=== PATIENT | female | born 1955 | race American Indian/Alaskan Native ===

== ENCOUNTER 2018-11-23 10:28 | Inpatient (IN) | payer BC, OTHER ==
[~2018-11-23] VITALS: Ht 162.6 cm; Wt 100.7 kg
--- NOTE | ~2018-11-23 | DS ---
[facility] [address] [place], [place] [address] Draft ADMISSION DATE: 12/01/2018 DISCHARGE DATE: 12/03/2018 FINAL DIAGNOSIS AT THE TIME OF DISCHARGE: End-stage osteoarthritis, right knee. PROCEDURE PERFORMED: Right total knee arthroplasty using Attune PS knee. HISTORY OF PRESENT ILLNESS: The patient is a 63-year-old female with a history of progressive osteoarthritis in both knees, no longer getting significant relief with conservative management. For the last [id number]-half, , but has finally decided she wants to proceed with a total knee arthroplasty on the right. HOSPITAL COURSE: The patient was taken to Day Surgery on May 03, 2019. After being evaluated in Day Surgery, she was taken to the operating room where she underwent an uneventful right total knee arthroplasty under spinal anesthesia. Postoperatively, she has done extremely well. She has met all of her therapy parameters and her pain is well controlled with oxycodone 5 mg being taken every 4 to 6 hours as needed for pain. We are going to discharge her home on Oxy IR 5 alternating with tramadol 50 to 100 mg every 6 hours. We will have her continue on her Xarelto for DVT prophylaxis. We will arrange for her to have outpatient physical therapy on the knee doing the total knee program. We will have her follow up with us in about six weeks. MD CALEB Hernandez/KELVIN /[id number] Copies: PATIENT NAME: RANDY JOHNSON DISCHARGE SUMMARY DATE OF : 53 REPORT #: [id number] PHYSICIAN: EMI MEDINA MD PCP: [facility] REPORT IS CONFIDENTIAL AND NOT TO BE RELEASED WITHOUT AUTHORIZATION [address] [address] Draft ~ PATIENT NAME: RANDY JOHNSON DISCHARGE SUMMARY DATE OF : 53 REPORT #: [id number] PHYSICIAN: EMI MEDINA MD PCP: [facility] REPORT IS CONFIDENTIAL AND NOT TO BE RELEASED WITHOUT AUTHORIZATION
[~2018-11-23 10:28] MED LIST: AMLODIPINE BESY10 MG PO; ASPIRIN EC81 MG PO; ATENOLOL50 MG PO; BP MED; CHOLESTEROL MED; CORAL CALCIUM1 EAC2 PO; DICLOFENAC SODI75 MG PO; DIPHENHYDRAMINE25 MG PO; FISH OIL 1,0001 EAC2 NG; HYDROCHLOROTH12.5 MG PO; MOBIC15 MG PO; MOTRIN600 MG PO; MULTI VITAMIN1 EACH PO; NORCO 5-325 TA1 EACH PO; PERCODAN TABLE1 EACH PO; SIMVASTATIN10 MG PO
[2018-11-24] MEDS ORDERED: LIPITOR10 MG PO (14:37)
--- NOTE | 2018-11-25 09:53 | NUR ---
PATIENT HERE TODAY FOR PREADMISSION APPOINTMENT. SHE IS SCHEDULED TO HAVE A RIGHT TOTAL KNEE ARTHROPLASTY ON 12/01/18. SHE ATTENDED AN APPOINTMENT WITH PHYSICAL THERAPY YESTERDAY AND WILL BE HAVING PHYSICAL THERAPY DONE WITH [facility]. FAMILY WILL PICK HER UP WHEN SHE IS DISCHARGED AND TRANSPORT HER TO APPOINTMENTS NEEDED. SHE REPORTS A REQUEST WAS SENT IN FOR A WALKER AND SHOWER BENCH. SHE HAS NO STEPS INTO THE HOME OR INSIDE THE HOME. THERE IS A TUB/SHOWER SHE WILL BE USING. SHE TALKS OF TAKING CARE OF HER GRANDCHILD WHO IS CURRENTLY SICK. THIS INFORMATION WILL BE SENT TO DR GATICA OFFICE AND CASE MANAGEMENT FOR FURTHER FOLLOW UP.
--- NOTE | 2018-12-01 11:27 | NUR ---
CHECKED ON PT AFTER 2MG OF VERSED, SHE IS RESTING COMFORTABLY. O2 SAT MONITOR IS ON, SHE IS MAINTINTAIN AT 97% ROOM AIR.
--- NOTE | 2018-12-01 12:42 | NUR ---
PATIENT ASSISTED TO THE BATHROOM W/FISHER TROT LINE AND MYSELF. PATIENT AMBULATES WITH A LIMP, BUT DOES SO WELL. PATIENT BACK IN BED. SIDE RAILS ARE IN PLACE. FAMILY REMAINS @ BEDSIDE.
--- NOTE | 2018-12-01 15:08 | NUR ---
12/01/18 1508 Sheets,Dyan 1500 PT ARRIVED TO PACU ON 10L VIA MASK WITH ORAL AIRWYA IN PLACE. RESP EVEN AND UNLABORED. 1503 PT WOKE TO PAINFUL STIMULI THEN BACK TO SLEEP, ORAL AIRWAY REMAINS IN PLACE. 1507 O2 DECREASED TO 6L VIA MASK.
--- NOTE | 2018-12-01 17:16 | NUR ---
PT ARRIVED TO FLOOR VIA STRETCHER. PT IS ON 2L NC, IS SOMEWHAT DROWSY BUT AWAKES TO VERBIL STIMULI. PT DENIES NAUSEA/VOMITTING OR PAIN. CPOX PLACED ON PT. DRESSING T ORIGHT KNEE WITH ELINOR WRAP IN PLACE IS C/D/I. ICE APPLIED TO RIGHT KNEE. LR AT [address] PT ORIENTED TO ROOM. FAMILY AT BEDSIDE. CALL LIGHT IN REACH. ICE WATER PROVIDED.
--- NOTE | 2018-12-01 19:20 | NUR ---
LIPITOR ADMINISTERED. PT REPORTING NAUSEA AFTER SIP OF WATER. REGLAN ADMINISTERED. NAUSEA IMPROVED. ABX INFUSING. HOB ELELVATED. EMISIS BAG PROVIDED. CALL LIGHT IN REACH
--- NOTE | 2018-12-01 19:33 | NUR ---
IN ROOM FOR REPORT, PT IS RESTING WITH EYES CLOSED, RR IS EVEN AND NONLABORED OF 2 LNC AND CPOX AT 93%. CALL LIGHT IS CLOSE.
--- NOTE | 2018-12-01 20:24 | NUR ---
IN ROOM TO ASSESS PT AND ADMINISTER MEDICATIONS. PT DENIES PAIN BUT STATES SHE HAS SOME NAUSEA. SHE IS DROWSY AND FALLS BACK ASLEEP EASILY. RT KNEE DRESSING HAS QUATER SIZE SANGUINOUS DRAINAGE NOTED. ASSISTED PT TO BSC 2PA WITH FWW. PT REPORTS SHE ALSO URINATED ABOUT 5PM TONIGHT. SHE DENIES NEEDS AT THIS TIME. SCDS, HEEL PROTECTORS, CPOX AND ICE ARE IN PLACE. PT DENIES FURTHER NEEDS AND CALL LIGHT IS WITHIN REACH.
--- NOTE | 2018-12-01 23:07 | NUR ---
NOTIFIED THAT PT HAD EMESIS. UPON ENTERING THE ROOM PT REPORTS A VERY SMALL AMOUNT POSSIBLY JUST SPIT. ADMINISTERED ZOFRAN AND PT FELT SHE WAS ABLE TO TAKE HER GABAPENTIN WELL. SHE DENIES NEEDS AT THIS TIME. CALL LIGHT IS WITHIN REACH.
--- NOTE | 2018-12-01 23:59 | NUR ---
PT WAS HAVING DRY HEAVES. ADMINISTERED PHENERGAN 12.5MG IN 20MLS ON PUMP OVER 10 MINUTES. BROUGHT PT WARM BLANKETS. PT DENIES FURTHER NEEDS. CALL LIGHT IS WITHIN REACH.
--- NOTE | 2018-12-02 01:01 | NUR ---
PT IS RESTING WITH EYES CLOSED, RR IS EVEN AND NONLABORED ON CPOX AT 93%. CALL LIGHT IS WITHIN REACH.
--- NOTE | 2018-12-02 02:30 | NUR ---
ASSITED PT TO THE RESTROOM 2PA WITH FWW. SHE WAS A LITTLE UNSTEADY ON HER FEET BUT DID WELL WITH GAIT BELT. ADMINISTERED MEDICATIONS AND SHE DENIES PAIN AT THIS TIME. CALL LIGHT IS WITHIN REACH. DRESSING STILL HAS SMALL AMOUNT OF DRAINAGE ON MEPILEX. CALL LIGHT IS CLOSE AND PT DENIES NEEDS.
--- NOTE | 2018-12-02 03:17 | NUR ---
CPOX WAS BEEPING PT DROPPED TO 84% O2 SAT. PLACED HER BACK ON 2 LNC TO GET HER BACK TO 91%. CALL LIGHT IS CLOSE.
--- NOTE | 2018-12-02 03:40 | NUR ---
PT IS RESTING WITH EYES CLOSED, RR IS EVEN AND NONLABORED ON CPOX. CALL LIGHT IS WITHIN REACH.
--- NOTE | 2018-12-02 05:15 | NUR ---
PT IS AWAKE IN BED, PT REQUESTED MORE CRACKERS. SHE DENIES FURTHER NEEDS AT THIS TIME. CALL LIGHT IS WITHIN REACH. SHE IS BACK ON RA AT 96% CPOX.
--- NOTE | 2018-12-02 05:47 | NUR ---
PT WAS PRETTY DROWSY AT THE START OF THE SHIFT. SHE HAD NAUSEA ON AND OFF REQUIRING ZOFRAN, REGLAN AND PHENERGAN BUT HAS NOT REQUIRED ANTINAUSEA MEDICATIONS SINCE ABOUT MIDNIGHT. SHE DENIES PAIN AND REPORTS SOME NUMBNESS AND TINGLING IN HER LEGS. SHE IS 2PA TO THE RESTROOM. SHE REQUIRED 2 LNC THROUGHT MOST OF THE NIGHT BUT WHILE AWAKE SHE IS ON RA. RT KNEE DRESSING IS INTACT AND THERE IS A SMALL AMOUNT OF SANGUINOUS DRAINAGE NOTED. SHE HAS FOOT PUMPS, ICE, HEEL PROTECTORS AND CPOX IN PLACE. PT IS TOLERATING CRACKERS AND LIQUIDS AT THIS TIME.
--- NOTE | 2018-12-02 06:10 | NUR ---
PT IS AWAKE IN BED, SHE DENIES NEEDS AT THIS TIME. CALL [facility] IS CLOSE.
--- NOTE | 2018-12-02 07:42 | NUR ---
REPORT RECEIVED FROM LA NENA DOMINGO RN. PT IN BED WITH HOB ELEVATED. CPOX IN PLACE, 91% ON RA AND HR 88. FOOT PUMPS IN PLACE, DRESSING TO RIGHT KNEE C/D/I. PT DENIES PAIN AT THIS TIME. ICE TO RIGHT KNEE. LR @ 125ML/HR INFUSING. CALL LIGHT IN REACH. DENEIOS FURTHER NEEDS, DENIES NAUSEA.
--- NOTE | 2018-12-02 08:47 | NUR ---
PT OOB 2PA TO CHAIR FOR BREAKFAST. DENEIS PAIN AT THIS TIME. ICE FOR RIGHT KNEE REFRESHED, DRESIING C/D/I. CALL LIGHT IN REACH.
--- NOTE | 2018-12-02 11:12 | NUR ---
PHYSICAL THERAPY IN TO WORK WITH PT.
--- NOTE | 2018-12-02 11:15 | OR ---
[facility] [address], [place] [address] Signed DATE OF OPERATION: 12/01/2018 SURGEON: Emi Medina MD PREOPERATIVE DIAGNOSIS: End-stage osteoarthritis of her right knee. POSTOPERATIVE DIAGNOSIS: End-stage osteoarthritis of her right knee. PROCEDURE: Right total knee arthroplasty. ANESTHESIA: Spinal with sedation. SPECIMENS AND COMPLICATIONS: There were no specimens or complications. TOURNIQUET TIME: about 80 minutes. IMPLANTS: An attune PS size 6 narrow femur, a size 5 tibial tray with a 7 PS poly insert and a 35 mm all-poly patella. WHAT WAS DONE: The patient was taken to the operating room. After anesthesia was induced and airway secured, the patient was positioned prepped and draped in a routine sterile fashion. The leg was exsanguinated with elevation and pneumatic tourniquet about the thigh was elevated to 300 mmHg pressure. A straight anterior approach was made to the knee. Skin and subcutaneous tissue were divided sharply. Hemostasis was achieved with electrocautery. An anteromedial arthrotomy was then performed. The patella was turned on edge and about 10 mm trimmed off the posterior aspect. We then made drill holes for 35 mm all-poly patella. We have put the trial patella in place and measured the thickness with a caliper and we had reconstructed the 22 mm height that have been present prior to resection. We then removed the trial and put the patella in the lateral recess and flexed the knee. We attached the Webjam navigation system to the distal femur and following the protocol we digitized the distal femur. We then accomplished distal femoral resection removing 10 mm of bone in neutral varus valgus and Electronically Signed By: EMI MEDINA MD 12/02/18 1115 PATIENT NAME: RANDY JOHNSON OPERATIVE REPORT DATE OF : 53 REPORT #: [id number] PHYSICIAN: EMI MEDINA MD PCP: [facility] REPORT IS CONFIDENTIAL AND NOT TO BE RELEASED WITHOUT AUTHORIZATION [facility] [address], [place] [address] Signed in about 3 degrees of flexion. Femoral wafers were then removed along with some peripheral osteophytes. We then transitioned the navigation system to the proximal tibia. Again, we resected about 4 mm off the medial side in neutral varus valgus, with about 3 degrees of posterior tilt per the attune surgical protocol. We then removed the tibial wafer remnants of the medial and lateral meniscus, ACL and PCL. We then put the femoral sizing jig on the distal femur and the femur sized to a size 6. We placed the alignment pins, put the 4-in-1 cutting block on the distal femur and then resected anteriorly posteriorly and to the chamfer cuts. We then cut out the notch. We then placed the size 6 femoral trial on the distal femur. Put a size 5 tibial tray with a 5 mm poly insert on the tibial. We then ranged the knee and checked the alignment, rotation and stability. We then removed the trials and prepared the tibia with a standard reamer and broach. The knee was copiously irrigated and meticulously dried. We then cemented the tibial tray, the femur and the patella in place. We placed a 5 mm poly trial on the tray and held the knee in full extension until cement had completely cured. Once the cement had completely cured, we removed the trial and recycled the knee. We actually found we could place a 7 mm poly and still achieve full extension with excellent varus and valgus stability. The trial was removed. The real poly was then snap-fit to the tray. The knee was copiously irrigated and meticulously dried. Routine wound closure was accomplished and a sterile dressing applied. The patient was awakened and taken to the recovery room and arrived in stable condition. Counts were correct and antibiotic protocols were followed. Emi Medina MD WFB/MODL /[id number] Copies: ~ Electronically Signed By: EMI MEDINA MD 12/02/18 1115 PATIENT NAME: RANDY JOHNSON OPERATIVE REPORT DATE OF : 53 REPORT #: [id number] PHYSICIAN: EMI MEDINA MD PCP: [facility] REPORT IS CONFIDENTIAL AND NOT TO BE RELEASED WITHOUT AUTHORIZATION
--- NOTE | 2018-12-02 13:10 | NUR ---
FAXED ORDER FOR A FRONT WHEELED WALKER TO [facility] INCLUDING CHART NOTES: FACE SHEET, H AND P, OP NOTE, PROG NOTE, PT EVAL AND ORDER. RECIEVED FAX CONFIMATION.
--- NOTE | 2018-12-02 16:12 | NUR ---
PT OUT IN HALLS WORKING [facility].
--- NOTE | 2018-12-02 17:28 | NUR ---
CHECKED WITH PT AND SHE HAS HER NEW WALKER IN HER ROOM WITH HER.
--- NOTE | 2018-12-02 17:53 | NUR ---
pATIENT HAS HAD A GOOD DAY HAS BEEN UP TO THE BATHROOM,WALKED IN ALDRICH WAY WITH THERPHY, PATIENT IS 1 PERSON ASSIST. PATIENT WASNT UP TO A SHOWER SAYS SHE WILL TAKE ONE TOMARROW, BED WAS CHANGED, PATIENT ALSO DID ALL HER ORAL CARE.
--- NOTE | 2018-12-02 19:23 | NUR ---
IN ROOM FOR REPORT. PT DENIES NEEDS AT THIS TIME. CALL LIGHT IS CLOSE.
--- NOTE | 2018-12-02 20:26 | NUR ---
IN ROOM TO ASSESS PT AND ADMINISTER MEDICATIONS. PT ONLY WANTS THE SCHEDULED PAIN MEDICINE AT THIS TIME. REMINDED HER TO CALL IF PAIN IS NOT WELL CONTROLLED. ASSISTED HER TO THE RESTROOM SBA WITH FWW. RT KNEE DRESSING HAS MODERATE AMOUNT OF BLEEDING NOTED. WILL REINFORCE DRESSING TONIGHT. PT DENIES NEEDS AT THIS TIME. CALL LIGHT IS CLOSE.
--- NOTE | 2018-12-02 21:24 | NUR ---
PATIENT VS DONE. PATIENT ASSISTED TO REPOSITION IN BED. JELLO PROVIDED PER REQUEST. PATIENT DENIES FURTHER NEEDS. ICE PACKS REMOVED PER REQUEST. CALL LIGHT IN REACH.
--- NOTE | 2018-12-02 23:30 | NUR ---
MEDICAL LOGISTICS SPECIALIST EVELYN TOOK PT TO THE RESTROOM AND HELPED HER BACK TO BED.
--- NOTE | 2018-12-03 00:38 | NUR ---
PT IS RESTING WITH EYES CLOSED, RESPIRATIONS ARE EVEN AND NONLABORED. CALL LIGHT IS WITHIN REACH.
--- NOTE | 2018-12-03 02:13 | NUR ---
ADMINISTERED SCHEDULED MEDICATIONS AND ASSISTED PT TO THE RESTROOM AND BACK TO BED. SHE DENIES FURTHER NEEDS. CALL LIGHT IS WITHIN REACH.
--- NOTE | 2018-12-03 04:35 | NUR ---
PT CALLED TO USE RESTROOM. SBA WITH FWW AND SHE IS BACK IN BED. SHE REQUESTED TO TAKE A BREAK FROM THE FOOT PUMPS SHE WORE THEM ALL NIGHT. SHE WANTS TO WAIT TO HAVE PAIN MEDICATION UNTIL CLOSER TO DAY SHIFT. NEW ICE IN BAGS. PT DENIES FURTHER NEEDS AT THIS TIME. CALL LIGHT IS CLOSE.
--- NOTE | 2018-12-03 05:03 | NUR ---
PT SLEPT ON AND OFF THROUGH THE NIGHT. SHE WAS RELUCTANT TO TAKE OXYCODONE BECAUSE OF NAUSEA AND SHE DOES NOT LIKE THE WAY SHE FEELS. SHE TOOK 1 OXYCODONE ALONG WITH ZOFRAN AND SOME CRACKERS WITHOUT ANY PROBLEMS. SHE IS SBA WITH FWW. RT KNEE BANDAGE SOAKED THROUGH TO ACEWRAP YESTERDAY, REINFORCED WITH ABD AND NEW ELINOR WRAP. SHE HAS ICE ON HER RT KNEE AND SCDS. FAMILY STAYED NIGHT IV IN RT FOREARM IS SL. SHE WAS ON ROOM AIR ALL NIGHT. SHE IS VOIDING QS.
--- NOTE | 2018-12-03 06:22 | NUR ---
IN ROOM TO ADMINISTER PRN PAIN MEDICATION AND ZOFRAN TO AVOID NAUSEA. PT DENIES FURTHER NEEDS AT THIS TIME. CALL LIGHT IS CLOSE.
--- NOTE | 2018-12-03 06:57 | NUR ---
PT CALLED SCREAMING. UPON ENTERING THE ROOM SHE SAID SHE TURNED HER KNEE JUST RIGHT WHILE TRYING TO MOVE IN BED AND IT POPED. PULLED ACEWRAP BACK AND DID NOT SEE ANYTHING OUT OF THE ORDINARY JUST BRUISING. TOLD PT TO TRY TO KEEP HER LEG STRAIGHT AND PLACED EXTRA ICE ON HER KNEE. SHE POINTED TO THE LATERAL SIDE OF HER KNEE AND SAID THAT IS WHERE THE POP AND PAIN IS AT. LEFT A MESSAGE FOR DR. MEDINA TO CALL BACK. WENT BACK TO THE PATIENT WHO WAS CALMING DOWN A LITTLE AND OFFERED TO GIVE A 2ND OXYCODONE AND SHE DECLINED. ADVISED PT TO LET US KNOW IF ANYTHING CHANGES.
--- NOTE | 2018-12-03 07:08 | NUR ---
SPOKE WITH DR MEDINA ORDERS RECEIVED FOR RT KNEE XRAY 2 VIEW, [facility].
--- NOTE | 2018-12-03 08:06 | NUR ---
REPORT RECEIVED. IMAGING IN TO DO KNEE X-RAY. PT REPORTING 9/10 PAIN IN RIGHT KNEE. PT IS TEARFUL. REASURED EASILY. 5MG OXYCODONE, SCHEDULE TORADOL AND TYLENOL ADMINISTERED. ICE APPLIED TO RIGHT KNEE. PILLOW TO LATERAL SIDE TO KEEP KNEE STRAIGHT. KNEE FUNTION ON BED LOCKED. BREAKFAST AT BEDSIDE. WILL CONT TO MONITOR.
--- NOTE | 2018-12-03 10:45 | NUR ---
PT WITH ANXIETY ABOUT SURGERY. PRN MEDICATION GIVEN PER DR ORDER.
[2018-12-03] MEDS ORDERED: OXYCODONE HCL5 MG PO (10:47)
[2018-12-03] MEDS ORDERED: XANAX0.25 MG PO (10:47)
[2018-12-03] MEDS ORDERED: TRAMADOL HCL50 MG PO (10:48)
[2018-12-03] MEDS ORDERED: XARELTO10 MG PO (10:48)
--- NOTE | 2018-12-03 11:50 | NUR ---
PT REPORTING SOME NAUSEA.4MG ZOFRAN IV ADMINISTERED. LUNCH AT BEDSIDE. SMALL AMOUTN OF DRAINAGE FRO RIGHT KNEE INCISION. ABD APPLIED. CALL LIGHT IN REACH.
--- NOTE | 2018-12-03 12:04 | NUR ---
PT IN BED, RESTING WITH TV ON. FAMILY ON COUCH ASLEEP. PT PLEASANT, HAS HAD A LITTLE BIT OF DIFFICULTY WITH SURGERY. STATED SHE NEEDS TO GET BACK ON HER FEET AND CARE FOR HER FAMILY. PT REQUESTED PRAYER, WILL FOLLOW NEEDED
[2018-12-03] MEDS ORDERED: ONDANSETRON ODT4 MG PO (13:00)
--- NOTE | 2018-12-03 14:45 | NUR ---
pt up with physical therapy in halls ambulating. reporting pain 5/10. back to bed to rest. call light in reach. deneis further needs.
--- NOTE | 2018-12-03 15:20 | NUR ---
LEFT DR MEDINA MESSAGE ABOUT DR ELLIS REQUESTED BY PT.
--- NOTE | 2018-12-03 15:29 | NUR ---
FAXED CHART NOTES TO [facility] OP PT, PT HAS AN APPT THERE ON December. CHART NOTES INCLUDED FACE SHEET, ORDERS, H AND P, PROG NOTES, PT EVAL AND NOTES. RECIEVED FAX CONFIRMATION OF THIS.
--- NOTE | 2018-12-03 16:27 | NUR ---
TOOK PATIENT'S IV OUT.
--- NOTE | 2018-12-03 16:33 | NUR ---
PT UP TO SHOWER. TOLERATED WELL. BACK TO BED, ICE TO RIGHT KNEE. KNEE WITH SMALL AMOUNT OF SEROSANG, ABD AND ELINOR WRAP PLACED. CALL LIGHT IN REACH.
== END 2018-12-03 18:55 | disposition home or self-care (01) | DRG 470 ==
LOC: MS 12-01 06:45 → DSVR 12-01 09:00 → MS 12-01 09:00
PROVIDERS: ADMIT Orthopaedic Surgery
PROC: 8E0YXBZ Computer Assisted Procedure of Lower Extremity (ICD-10-PCS; 2018-12-01)
PROC: 0SRC0J9 Replacement of Right Knee Joint with Synthetic Substitute, Cemented, Open Approach (ICD-10-PCS; principal; 2018-12-01 10:45)
DX: M17.11 Unilateral primary osteoarthritis, right knee (principal); I10 Essential (primary) hypertension; E78.00 Pure hypercholesterolemia, unspecified; E11.9 Type 2 diabetes mellitus without complications; E66.01 Morbid (severe) obesity due to excess calories; Z68.38 Body mass index [BMI] 38.0-38.9, adult; Z79.1 Long term (current) use of non-steroidal anti-inflammatories (NSAID); Z79.899 Other long term (current) drug therapy; Z79.82 Long term (current) use of aspirin; Z91.040 Latex allergy status
CPT/HCPCS: 01402; 36415; 73560; 80048; 85025; 97110; 97116; 97161; C1713; C1776; J0690; J1100; J1885; J2250; J2274; J2310; J2405; J2550; J2704; J2765; J3010; J7120

== ENCOUNTER 2024-08-30 03:52 | Inpatient (IN) | payer MEDICARE, OTHER ==
[2024-08-30] VITALS (28 sets, daily range): BP systolic 80–152; BP diastolic 55–102
[~2024-08-30] VITALS: Ht 162.6 cm
[~2024-08-30 03:52] MED LIST changes: +ADVIL200 MG PO; +ASPIR-LOW81 MG PO; -ATENOLOL50 MG PO; +LIPITOR10 MG PO; +ONDANSETRON ODT4 MG PO; +OXYCODONE HCL5 MG PO; +TENORMIN25 MG PO; +TRAMADOL HCL50 MG PO; +XANAX0.25 MG PO; +XARELTO10 MG PO
[2024-08-30] MEDS ORDERED: IBLOOD GLUCOSE TEST STRIP 1 EA TEST XX ONE (04:00)
[2024-08-30] MEDS ORDERED: ETOMIDATE 40 MG/20 ML VIAL IV ONE ×2 (04:00→04:15)
[2024-08-30] MEDS ORDERED: dilTIAZem HCL 25 MG/5 ML VIAL IV ONE (04:30)
[2024-08-30] MEDS ORDERED: LORazepam 2 MG/ML VIAL IV ONE (04:45)
[2024-08-30] MEDS ORDERED: DILTIAZEM HCl/D5W 125 ML IV ONE (05:00)
[2024-08-30] MEDS ORDERED: ASPIRIN 81 MG CHEW PO ONE (05:15)
[2024-08-30 05:24] LABS: HEMOGLOBIN 11.8 g/dL (12.0-18.0); MCH 27.1 (27-36)
[2024-08-30 05:26] LABS: BASOPHILS 0.5 % (0-2); EOSINOPHILS 1.1 % (0-6); HEMATOCRIT 36.8 % (35.0-50.0); LYMPHOCYTES 12.1 % (24-44); MCHC 32.1 g/dl (30-36); MCV 84.3 fl (81-99); MONOCYTES 5.2 % (0-12); NEUTROPHILS 81.1 % (39-80); PLATELET COUNT 245 K/uL (140-440); RBC 4.36 M/ul (4.3-5.7); RDW 14.8 (10.5-15.0)
[2024-08-30] MEDS ORDERED: LACTATED RINGER'S 1,000 ML IV ONE ×2 (05:30→12:45)
[2024-08-30 05:37] LABS: INR 1.02 (0.80-1.30)
[2024-08-30 05:39] LABS: PARTIAL THROMBOPLASTIN TIME 29.5 Sec (22.9-41.3)
[2024-08-30 05:41] LABS: ALBUMIN 3.5 g/dL (3.4-5.0); ALBUMIN/GLOBULIN RATIO 0.97 (1.1-2.4); ALCOHOL, MEDICAL <3 ng/dL (<3); ALKALINE PHOSPHATASE 125 U/L (46-116); ALT (SGPT) 21 U/L (14-59); ANION GAP 13.8 (7-21); AST (SGOT) 15 U/L (15-37); BILIRUBIN, TOTAL 0.7 ng/dL (0.2-1.0); BUN/CREATININE RATIO 12.96 (6.0-28.6); CALCIUM 8.5 mg/dL (8.5-10.1); CARBON DIOXIDE 27 mmol/L (21-32); CHLORIDE 104 mmol/L (98-107); CREATININE, SERUM 1.08 mg/dL (0.55-1.02); GLOMERULAR FILTRATION RATE,EST 55 mL/min (>60); POTASSIUM 3.8 mmol/L (3.5-5.1); PROTEIN, TOTAL 7.1 g/dL (6.4-8.2); UREA NITROGEN 14 mg/dL (7-18)
[2024-08-30 06:31] LABS: BILIRUBIN, URINE NEGATIVE (negative); BLOOD/HGB, URINE NEGATIVE (Negative); KETONE, URINE NEGATIVE (Negative); LEUK ESTERASE, URINE NEGATIVE (negative); NITRITE, URINE NEGATIVE (negative)
[2024-08-30 06:50] LABS: LACTIC ACID, BLOOD 2.2 mmol/L (0.4-2.0)
[2024-08-30] MEDS ORDERED: ACETAMINOPHEN 325 MG TAB PO PRN (07:00)
[2024-08-30] MEDS ORDERED: ondansetron HCL 4 MG/2 ML VIAL IV PRN (07:00)
[2024-08-30 07:03] LABS: AMPHETAMINES, URINE NEGATIVE (NEGATIVE); BARBITURATES, URINE NEGATIVE (NEGATIVE); BENZODIAZEPINE, URINE NEGATIVE (NEGATIVE); BUPRENORPHINE, URINE NEGATIVE (NEGATIVE); CANNABINOID, URINE POSITIVE (NEGATIVE); COCAINE, URINE NEGATIVE (NEGATIVE); ECSTASY, URINE NEGATIVE (NEGATIVE); FENTANYL, URINE NEGATIVE (NEGATIVE); METHADONE, URINE NEGATIVE (NEGATIVE); OPIATES, URINE NEGATIVE (NEGATIVE); OXYCODONE, URINE NEGATIVE (NEGATIVE); PHENCYCLIDINE, URINE NEGATIVE (NEGATIVE)
--- NOTE | 2024-08-30 07:23 | EKG ---
[facility] [address] [place] [address] Signed Atrial fibrillation with rapid ventricular response Low voltage QRS Abnormal ECG No previous ECGs available Confirmed by Zara Sharma MD ([id number]) on 08/30/2024 7:23:45 AM Electronically Signed By: ZARA SHARMA MD 08/30/24722 PATIENT NAME: RANDY JOHNSON Electrocardiogram DATE OF : 53 PHYSICIAN: ZARA SHARMA MD REPORT #: [id number] REPORT IS CONFIDENTIAL AND NOT TO BE RELEASED WITHOUT AUTHORIZATION
[2024-08-30] MEDS ORDERED: METOPROLOL TARTRATE 25 MG TAB PO SCH ×2 (07:30→14:45)
[2024-08-30] MEDS ORDERED: METOPROLOL TARTRATE 5 MG/5 ML VIAL IV ONE (09:00)
[2024-08-30] MEDS ORDERED: GABAPENTIN100 MG PO (09:20)
[2024-08-30] MEDS ORDERED: FOSAMAX70 MG PO (09:21)
[2024-08-30] MEDS ORDERED: VENTOLIN HFA18 GM INH (09:25)
[2024-08-30] MEDS ORDERED: GABAPENTIN 100 MG CAP PO SCH (09:38)
--- NOTE | 2024-08-30 09:43 | NUR ---
PATIENT ADMITTED FOR R/O CVA AND NEW ONSET AFIB W/RVR. PT VERY EMOTIONAL AND LABILE WITH EMOTIONS. PT'S SON CHACE IN ROOM AND ATTENTIVE TO PATIENT. DR. SEVERINO IN ROOM TO SEE PATIENT AND PLAN OF CARE BEING DISCUSSED. 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 PT DOES AGREE TO MRI WITH SOME SEDATION MEDICATION. ADMISSION ASSESSMENT COMPLETE. NIH IS 0. PO METOPROLOL GIVEN. PT TO BE STARTED ON ESMOLOL GTT.
[2024-08-30] MEDS ORDERED: LORazepam 2 MG/ML VIAL IV PRN (09:45)
[2024-08-30] MEDS ORDERED: ESMOLOL HCL 250 ML IV SCH (09:45)
--- NOTE | 2024-08-30 10:30 | NUR ---
ATTEMPTED TO TAKE PATIENT DOWN TO MRI. PRN ATIVAN GIVEN TO TRY AND HELP WITH CLAUSTORPHOBIA. PT UNABLE TO COMPLETE MRI. PT UNABLE TO EVEN BE SLID INTO MRI WITHOUT BECOMING VERY DISTURBED AND SAYING "GET ME OUT, I CAN'T DO THIS." PATIENT ALSO VERY EMOTIONAL SAYING "PLEASE DON'T LEAVE ME, WHERE IS MY NURSE? PLEASE DON'T LEAVE ME." THIS RN WENT WITH PT TO MRI, INTO MRI ROOM AND ATTEMPTED TO CALM HER BEST I COULD, BUT STILL UNABLE TO HELP PATIENT GET MRI COMPLETE. BACK TO ROOM AND PATIENT VERY APOLOGETIC ABOUT NOT BEING ABLE TO COMPLETE TEST. REASSURED PATIENT THAT THIS IS NOT HER FAULT AND THESE THINGS CAN HAPPEN. INFORMED OF MRI. [facility] 1 EARLIER WHEN PT WAS TESTED.
--- NOTE | 2024-08-30 10:52 | NUR ---
PT NOT AVAILABLE FOR VISIT. PROVIDED PRAYER.
--- NOTE | 2024-08-30 11:00 | NUR ---
ESMOLOL GTT STARTED AT 25 MCG/KG/MIN. PT'S HEART RATE STAYING ELEVATED DESPITE PO METOPROLOL. PT'S FAMILY STARTING TO ARRIVE TO SEE HER WELL.
[2024-08-30] MEDS ORDERED: PHARMACY RENAL DOSE ADJUSTMENT 1 DOSE MISC PO SCH (12:00)
--- NOTE | 2024-08-30 14:18 | NUR ---
UR CLINICAL REVIEW: 2 MN KRIST[facility]- [facility] INPT FOR CVA AND AFIB RVR. MEDICARE INPT 08/30/24 @ 0651 ORDER MATCHES REG NO AUTH REQUIRED PER MEDICARE RULES DC PLAN PENDING FURTHER TESTING, CASE MANAGEMENT ASSESSMENT.
--- NOTE | 2024-08-30 15:05 | NUR ---
CASE MANAGEMENT 1430: SPOKE TO PATIENT AND FAMILY AT BEDSIDE. PATIENT LIVES IN HOUSE WITH 2-3 STEPS TO GET INTO THE HOUSE AND THE HOUSE IS A SPLIT LEVEL WITH STEPS INSIDE. PATIENT USES CANE AT BASELINE. PATIENT IS THE PRIMARY CAREGIVER TO SON AND GRANDDAUGHTER. PATIENT COMPLAINING OF WEAKNESS AND EMOTIONALLY LABILE. PATIENT DOES NOT SHOW ANY PHYSICAL DEFICITS ON EXTERMITIES. SISTER PRESENT AND VERY CONCERNED. FEELS PATIENT IS WEAK AND WILL NEED A SNF. PATIENT IS AGREEABLE TO A SNF AND WOULD PERFER TO STAY IN TOWN AND GO TO [facility]. PATIENT IS LOW INCOME AND INFORMATION WAS GIVEN TO PATIENT AND HER SISTER FOR DHS, AGING AND DISABILITY FOR LTC MEDICAID. SISTER WILL HELP HER APPLY TOMORROW. PATIENT USED [employer] IN THE PAST. D/C PENDING. PATIENT WAS UNABLE TO TOLERATE AN MRI. EXTENT OF STROKE UNCLEAR. WILL FOLLOW UP ON FRIDAY WHEN CASE MANAGEMENT RETURNS.
--- NOTE | 2024-08-30 16:00 | NUR ---
AFTERNOON ASSESSMENT COMPLETE. PT REMAINS ON ESMOLOL GTT BUT HAS BEEN TURNED UP TO NOW 75 MCG/KG/MIN. PT REC'D 2ND DOSE OF PO METOPROLOL AROUND 1500 TODAY AND THIS IS NOW ORDERED Q6 PER DR. WILSON. PT'S FAMILY IN ROOM AND ASKING GOOD QUESTIONS - DISCUSSED PT'S CURRENT STATUS WITH THEM AT LENGTH. PT'S SISTERS HAVE TRAVELLED FROM [place] TO BE WITH [facility] AND PLAN TO STAY WITH HER THIS EVENING. PT REMAINS EMOTIONALLY LABILE AND CRIES VERY EASILY, SAYING THINGS LIKE, "I JUST WANT TO GO HOME." SUPPORT PROVIDED BEST POSSIBLE TO PATIENT.
[2024-08-30] MEDS ORDERED: ATORVASTATIN 40 MG TAB PO SCH (17:00)
--- NOTE | 2024-08-30 18:20 | NUR ---
PATIENT REMAINS ON ESMOLOL GTT AT 100 MCG/KG/MIN AT THIS TIME. NO VISITORS CURRENTLY IN ROOM. PT REMAINS LABILE WITH HER EMOTIONS. UP TO BSC TO VOID SEVERAL TIMES AND VOIDING LARGE AMOUNTS AT A TIME. HR JUMPING FROM 90s-120s AFIB. WILL CONTINUE TO MONITOR.
--- NOTE | 2024-08-30 19:20 | NUR ---
RECEIVED REPORT FROM DAY SHIFT. PATIENT IS SITTING ON THE EDGE OF THE BED. PATIENT ASSISTED BACK INTO THE BED. PATIENT PROVIDED WARM BLANKETS. UPDATED PATIENT AND PATIENTS FAMILY ON PLAN OF CARE. PATIENT AND PATIENTS FAMILY DENY ANY FURTHER COMMENTS, QUESTIONS OR CONCERNS. CALL LIGHT IN REACH.
[2024-08-30] MEDS ORDERED: hydrOXYzine pamoate 25 MG CAP PO PRN (20:00)
[2024-08-30] MEDS ORDERED: ACETAMINOPHEN 500 MG TAB PO PRN (20:00)
[2024-08-30] MEDS ORDERED: MELATONIN 3 MG TAB PO PRN (20:00)
--- NOTE | 2024-08-30 20:48 | NUR ---
PATIENT ASSISTED TO THE [facility] A 1PA. PATIENT ABLE TO VOID AND PASS GAS. PATIENT IS BACK IN BED RESTING. PM MEDS GIVEN PER ORDER. PATIENT AND FAMILY REPORTS CONCERN FOR PATIENTS ANXIETY, PRN MEDICATION GIVEN PER ORDER. PATIENTS ASSESMENT COMPLETED. PATIENT DENIES ANY PAIN, NAUSEA, OR SOB. PLACED WAFFLE MATTRESS ON PATIENTS BED FOR COMFORT. PATIENTS FAMILY REMAINS IN THE ROOM. PATIENT AND PATIENTS FAMILY DENY ANY NEEDS. CALL LIGHT IN REACH.
--- NOTE | 2024-08-30 21:23 | NUR ---
PATIENT CALLED AND VERY ANXIOUS. PATIENT ASSISTED TO STAND UP AND TAKE A FEW STEPS. PATIENT IS BACK IN BED RESTING. PATIENT REPORTS IMPROVEMENT IN ANXIETY. PATIENT DENIES ANY FURTHER NEEDS. CALL LIGHT IN REACH. IV INFUSING PER ORDER.
--- NOTE | 2024-08-30 22:11 | NUR ---
PATIENT IS RESTING IN BED ON LEFT SIDE WITH EYES CLOSED, RR 24. NAD NOTED. FAMILY AT BEDSIDE AND DENY ANY NEEDS. CALL LIGHT IN REACH.
--- NOTE | 2024-08-30 22:30 | NUR ---
PATIENT ASSISTED TO THE BSC A 1PA. PATIENT ABLE TO VOID. PATIENT IS BACK IN BED RESTING. PATIENT DENIES ANY PAIN OR SOB. PATIENT DENIES ANY FURTHER NEEDS. CALL LIGHT IN REACH. IV INFUSING PER ORDER. PATIENTS CALL LIGHT IN REACH. FAMILY AT BEDSIDE AND DENY AN NEEDS.
--- NOTE | 2024-08-30 23:36 | NUR ---
PATIENT IS RESTING IN BED WITH EYES CLOSED, RR 22. NAD NOTED. IV INFUSING PER ORDER. PATIENTS FAMILY AT BEDSIDE AND DENY ANY NEEDS. CALL LIGHT IN REACH.
--- NOTE | 2024-08-30 23:58 | NUR ---
PATIENT ASSISTED TO THE BSC A 1PA. PATIENT ABLE TO VOID. PATIENT IS BACK IN BED RESTING. PATIENT STATED "I NEED TO GET UP AND GET SOME ICE CREAM FOR MY GRANDAUGHTER". PATIENT ASKED IF SHE KNEW WHERE SHE WAS. PATIENT WAS ABLE TO ANSWER APPROPRIATELY. PATIENT DENIES ANY FURTHER NEEDS. CALL LIGHT IN REACH.
[2024-08-31] VITALS (32 sets, daily range): BP systolic 80–152; BP diastolic 39–102
--- NOTE | 2024-08-31 00:53 | NUR ---
PATIENTS FAMILY MEMBER CALLED TO LET THIS RN KNOW BP CUFF HAD SLID OFF. THIS RN INTO PATIENTS ROOM AND PATIENT IS SITTING ON EDGE OF BED. PATIENTS FAMILY EDUCATED TO CALL STAFF FOR ASSISTANCE. FAMILY VERBALIZED UNDERSTANDING. PATIENT ASSISTED TO STAND AND STRETCH. PATIENT IS BACK IN BED RESTING. PATIENT DENIES ANY FURTHER NEEDS. CALL LIGHT IN REACH. IV INFUSING PER ORDER.
--- NOTE | 2024-08-31 01:14 | NUR ---
PATIENT ASSISTED TO STAND AT THE BEDSIDE AND STRETCH. PATIENT ABLE TO TAKE A FEW STEPS. PATIENT IS BACK IN BED RESTING. PATIENT DENIES ANY PAIN OR SOB. PATIENT DENIES ANY NEEDS. CALL LIGHT IN REACH. IV INFUSING PER ORDER.
--- NOTE | 2024-08-31 01:35 | NUR ---
PATIENT ASSISTED TO REPOSITION IN BED. PATIENTS SCHEDULED MEDICATION GIVEN PER ORDER. PATIENT DENIES ANY FURTHER NEEDS. CALL LIGHT IN REACH. IV INFUSING PER ORDER.
--- NOTE | 2024-08-31 02:42 | NUR ---
PATIENT ASSISTED TO STAND AT THE BEDSIDE. PATIENT IS BACK IN BED RESTING. PATIENT DENIES ANY PAIN OR SOB. PATIENT PROVIDED ICE CHIPS. IV INFUSING PER ORDER. PATIENT AND PATIENTS FAMILY DENY ANY FURTHER NEEDS. CALL LIGHT IN REACH.
--- NOTE | 2024-08-31 02:58 | NUR ---
PATIENT ASSISTED TO THE BSC A 1PA. PATIENT ABLE TO VOID. PATIENT IS BACK IN BED RESTING. PATIENT DENIES ANY FURTHER NEEDS. CALL LIGHT IN REACH. IV INFUSING PER ORDER.
--- NOTE | 2024-08-31 03:40 | NUR ---
PATIENT ASSISTED TO STAND AT THE BEDSIDE. PATIENT IS BACK IN BED RESTING. PATIENT DENIES ANY PAIN. PATIENT OFFERED PRN MEDICATION FOR ANXIETY. PATIENT DENIES THE NEED FOR ANXIETY MEDICATION AT THIS TIME. PATIENTS IV INFUSING PER ORDER. PATIENT DENIES ANY FURTHER NEEDS. CALL LIGHT IN REACH.
--- NOTE | 2024-08-31 04:48 | NUR ---
PATIENT ASSISTED TO THE BSC. PATIENT IS ABLE TO VOID. PATIENT IS ANXIOUS AND TEARFUL. PATIENT STATED "I JUST CANT GET COMFORTABLE AND REST". PATIENT GIVEN PRN ANXIETY MEDICATION PER REQUEST. PATIENT ASSISTED TO THE RECLINER. PATIENT SAT IN RECLINER FOR APPROX 5 MINUTES. PATIENT THEN STATED "I CANT DO THIS I WANT TO GO TO BED". PATIENT ASSISTED BACK INTO BED. PATIENT REMAINS TEARFUL. THIS RN PROVIDED SUPPORT AND RESSURED PATIENT. PATIENT DENIES ANY FURTHER NEEDS. CALL LIGHT IN REACH. IV INFUSING PER ORDER.
--- NOTE | 2024-08-31 05:28 | NUR ---
PATIENT CALLED AND REPORTED LEFT SHOULDER PAIN. PATIENT DENIES ANY RADIATION OF PAIN. PATIENT DENIES ANY CHEST PAIN OR SOB. PATIENT STATED "MY SHOULDER HURTS FROM GETTING UP AND DOWN ALL NIGHT". PATIENT ASSISTED TO THE RECLINER PER PATIENT REQUEST. PATIENT PROVIDED A WARM PACK FOR HER LEFT SHOULDER PAIN LAB IN ROOM TO DRAW BLOOD. PATIENT ASSESMENT COMPLETED. PATIENT REPORTS BACK PAIN IN THE RECLINER. PATIENT IS TEARFUL AND ANXIOUS. PATIENT REASSURED. PATIENT OFFERED TYLENOL. PATIENT STATED "I DONT TAKE TYLENOL". PATIENT ASKED HER GRANDAUGHTER WHAT SHE SHOULD DO. PATIENTS GRANDAUGHTER ADVISED PATIENT TO TAKE THE TYLENOL. PRN TYLENOL GIVEN TO PATIENT PER ORDER. PATIENT THEN REQUESTED TO BE ASSISTED BACK TO THE BED. PATIENT IS NOW IN BED RESTING. PATIENT REPORTS BEING AFRAID TO FALL ASLEEP. PATIENT REASSURED THAT SHE IS BEING WATCHED CONSTANTLY ON THE MONITOR. PATIENT DENIES ANY FURTHER NEEDS. CALL LIGHT IN REACH. IV INFUSING PER ORDER.
[2024-08-31 05:31] LABS: BASOPHILS 0.6 % (0-2); EOSINOPHILS 2.3 % (0-6); HEMOGLOBIN 11.5 g/dL (12.0-18.0); LYMPHOCYTES 21.2 % (24-44); MCH 28.1 (27-36); MCHC 33.7 g/dl (30-36); MCV 83.3 fl (81-99); MONOCYTES 6.7 % (0-12); NEUTROPHILS 69.2 % (39-80); PLATELET COUNT 256 K/uL (140-440); RBC 4.08 M/ul (4.3-5.7); RDW 14.5 (10.5-15.0)
[2024-08-31 05:46] LABS: ANION GAP 14.9 (7-21); BUN/CREATININE RATIO 8.51 (6.0-28.6); CALCIUM 8.5 mg/dL (8.5-10.1); CHOLESTEROL/HDL RATIO 2.8; CREATININE, SERUM 0.94 mg/dL (0.55-1.02); MAGNESIUM 1.9 mg/dL (1.8-2.4); POTASSIUM 3.9 mmol/L (3.5-5.1)
--- NOTE | 2024-08-31 06:00 | NUR ---
PATIENT IS RESTING IN BED WITH EYES CLOSED, RR 16. PATIENTS DRIP TITRATED PER PROTOCOL. [facility] AT BEDSIDE PROVIDED WATER. NO FURTHER NEEDS NOTED. CALL LIGHT IN REACH.
--- NOTE | 2024-08-31 06:46 | NUR ---
PATIENT ASSISTED TO THE BSC. PATIENT ABLE TO VOID. PATIENT IS BACK IN BED RESTING. PATIENT REPORTS IMPROVEMENT IN PAIN IN SHOULDER AND BACK. NO FURTHER NEEDS NOTED. CALL LIGHT IN REACH.
--- NOTE | 2024-08-31 07:30 | NUR ---
REPORT RECEIVED. PATIENT IS RESTING IN BED. GRANDDAUGHTER IS IN ROOM. ESMOLOL GTT INFUSING AT 25 MCG/KG/MIN.
[2024-08-31] MEDS ORDERED: METOPROLOL TARTRATE 50 MG TAB PO SCH ×2 (08:00→20:00)
[2024-08-31] MEDS ORDERED: ASPIRIN 81 MG CHEW PO SCH (08:00)
--- NOTE | 2024-08-31 08:10 | NUR ---
ASSESSMENT DONE. PATIENT IS RESTLESS.
--- NOTE | 2024-08-31 08:30 | NUR ---
DR. WILSON HERE TO SEE PATIENT, CT TO BE REPEATED TODAY. PATIENT FORGETFUL AT TIMES.
--- NOTE | 2024-08-31 09:45 | NUR ---
ESMOLOL GTT TO OFF. SEE MONITOR PRINT OUT FOR FREQ VITAL SIGNS.
[2024-08-31] MEDS ORDERED: LORazepam 2 MG/ML VIAL IV PRN (10:00)
--- NOTE | 2024-08-31 10:00 | NUR ---
TO CT VIA BED. NO ATIVAN GIVEN AT THIS TIME. RN WITH PATIENT.
--- NOTE | 2024-08-31 10:25 | NUR ---
RETURN TO CCU TOLERATED CT FAIR. ANXIOUS NOW, ATIVAN 1 MG IV GIVEN.
--- NOTE | 2024-08-31 11:00 | NUR ---
UP TO COMMODE TO VOID. ASSIST BY ONE STAFF. FIRM DIRECTION GIVEN. FOLLOWING DIRECTION WELL. BACK TO BED WITH ASSIST, NOW SITTING AT BEDSIDE READY TO WORK WITH PHYSICAL THERAPY.
--- NOTE | 2024-08-31 12:15 | NUR ---
SLEEPING, NOT AWAKENED FOR ASSESSMENT OR LUNCH AT THIS TIME. NO DISTRESS NOTED.
--- NOTE | 2024-08-31 12:30 | NUR ---
UPT TO COMMODE TO VOID THEN TRANSFER TO CHAIR FOR LUNCH. MOVING FAIR WITH ASSIST. HR INCREASE WITH EXERTION TO 130'S AT TIMES. AFTER RESTING FOR FEW MIN HR HR BACK TO 90-110.
--- NOTE | 2024-08-31 13:30 | NUR ---
BACK TO BED WITH ASSIST AFTER SITTING IN CHAIR, MOVING FAIR. DENIES SHORTNESS OF BREATH. SOMEWHAT UNSTABLE ON FEET. IS W/O C/O CHEST PAIN.
--- NOTE | 2024-08-31 14:00 | NUR ---
SLEEPING, NO DISTRESS NOTED.
--- NOTE | 2024-08-31 16:20 | NUR ---
OOB TO CHAIR. ASSESSMENT DONE. HAS BEEN MORE CALM THIS AFTERNOON. HAS BEEN UP TO COMMODE FREQUENTLY. HAS HAD GOOD PO INTAKE. NO PROBLEMS WITH SWALLOW. DENIES EARL OR ANY PAIN.
--- NOTE | 2024-08-31 18:01 | NUR ---
RESTING NOW. FAMILY IN ROOM.
--- NOTE | 2024-08-31 18:30 | NUR ---
DR. LYNN UPDATED ON PATIENT AFTERNOON. LOPRESSOR WILL BE INCREASED TO 75 MG Q 6 HRS STARTING AT 1999 THIS NIGHT. SON REMAINS IN ROON. SON IS PLANNING ON SPENDING THE NIGHT.
--- NOTE | 2024-08-31 19:23 | NUR ---
REPORT TO NEXT SHIFT. PATIENT RESTING.
--- NOTE | 2024-08-31 19:30 | NUR ---
RECEIVED REPORT FROM DAY SHIFT RN. PATIENT IS RESTING IN BED WATCHING TV. PATIENT DENIES ANY NEEDS AT THIS TIME. CALL LIGHT IN REACH.
--- NOTE | 2024-08-31 20:29 | NUR ---
PATIENT ASSISTED TO THE BSC A 1PA. PATIENT ABLE TO VOID. PATIENT IS BACK IN BED RESTING. PATIENT DENIES ANY PAIN OR SOB. PATIENTS IV FLUSHED AND SL PER ORDER. PATIENTS PM MEDS GIVEN PER ORDER. PATIENT ASSESMENT COMPLETED. PATIENT AND PATIENTS SON UPDATED ON PLAN OF CARE AND ALL QUESTIONS ANSWERED. PATIENT DENIES ANY FURTHER NEEDS. CALL LIGHT IN REACH.
--- NOTE | 2024-08-31 21:12 | NUR ---
prn vistaril given per request of primary rn, see emar. pt assisted to edge of bed, sitting. family in room. call light in reach. pt then up sba to bsc, voided 275mls yellow urine. pt unable to complete talon care, assistance provided with wiping, new attends in palce. pt back in bed, bed alarm on for safety. no additional needs.
--- NOTE | 2024-08-31 22:02 | NUR ---
PATIENTS WAFFLE OVERLAY REMOVED FROM BED PER PATIENT REQUEST. PATIENT ASSISTED TO REPOSITION IN BED. PATIENT REPORTS 5/10 PAIN IN HER BACK, PRN MEDICATION GIVEN PER ORDER. PATIENT GIVEN PRN SLEEP AID PER REQUEST. PATIENT DENIES ANY FURTHER NEEDS. CALL LIGHT IN REACH. SON AT BEDSIDE.
--- NOTE | 2024-08-31 23:24 | NUR ---
PATIENT UP TO BSC A 1PA. PATIENT ABLE TO VOID. PATIENT IS BACK IN BED RESTING. PATIENT DENIES ANY PAIN. PATIENT DENIES ANY FURTHER NEEDS. CALL LIGHT IN REACH. SON AT BEDSIDE AND DENIES ANY NEEDS.
[2024-09-01] VITALS (12 sets, daily range): BP systolic 104–133; BP diastolic 60–103
--- NOTE | 2024-09-01 00:43 | NUR ---
CALL LIGHT ANSWERED, pt UP SBA TO BSC-UNSTEADY AND NEEDS PROMPTING AT TIMES. VOIDED 200MLS YELLOW URINE AND BACK IN BED, BED ALARM RESUMED. BED RAILS X4 UP PER pt REQUEST, CALL LIGHT IN REACH. JESUS REMAINS IN ROOM.
--- NOTE | 2024-09-01 02:22 | NUR ---
PATIENT IS RESTING IN BED WITH EYES CLOSED, RR 16. CALL LIGHT IN REACH.
--- NOTE | 2024-09-01 03:16 | NUR ---
PATIENT ASSISTED TO THE BSC A 1PA. PATIENT ABLE TO VOID. PATIENT IS BACK IN BED RESTING. SCHEDULED MEDS GIVEN PER ORDER. PATIENT DENIES ANY PAIN OR SOB. PATIENT PROVIDED FRESH ICE WATER. PATIENT DENIES ANY FURTHER NEEDS. CALL LIGHT IN REACH.
--- NOTE | 2024-09-01 05:17 | NUR ---
PATIENT UP TO BSC A 1PA. PATIENT ABLE TO VOID. PATIENT IS BACK IN BED RESTING. PATIENT DENIES ANY PAIN. PATIENTS ASSESMENT COMPLETED. PATIENT PROVIDED FRESH ICE WATER. PATIENT DENIES ANY FURTHER NEEDS. CALL LIGHT IN REACH.
[2024-09-01 05:37] LABS: EOSINOPHILS 2.4 % (0-6); HEMATOCRIT 35.5 % (35.0-50.0); HEMOGLOBIN 11.8 g/dL (12.0-18.0); LYMPHOCYTES 20.7 % (24-44); MCH 27.9 (27-36); MCHC 33.3 g/dl (30-36); MCV 83.6 fl (81-99); NEUTROPHILS 68.9 % (39-80); PLATELET COUNT 261 K/uL (140-440); RBC 4.25 M/ul (4.3-5.7); RDW 14.6 (10.5-15.0)
[2024-09-01 05:47] LABS: ANION GAP 11.3 (7-21); BUN/CREATININE RATIO 7.5 (6.0-28.6); CALCIUM 8.5 mg/dL (8.5-10.1); CREATININE, SERUM 0.8 mg/dL (0.55-1.02); MAGNESIUM 1.9 mg/dL (1.8-2.4); POTASSIUM 3.3 mmol/L (3.5-5.1)
--- NOTE | 2024-09-01 06:28 | NUR ---
PATIENT ASSISTED TO THE BSC A 1PA. PATIENT ABLE TO VOID. PATIENT ASSISTED TO WALK AROUNDE THE ROOM A 1PA W/CANE. PATIENT DENIES ANY SOB. PATIENT IS BACK IN BED RESTING. PATIENT REPORTS 5/10 PAIN IN HER BACK AND RIGHT HIP, PRN TYLENOL GIVEN PER ORDER. PATIENT PROVIDED FRESH ICE WATER. PATIENT DENIES ANY FURTHER NEEDS. CALL LIGHT IN REACH.
--- NOTE | 2024-09-01 07:30 | NUR ---
REPORT RECEIVED. UP TO BR TO VOID THEN TRANSFERRED TO CHAIR FOR BREAKFAST. MOVING WELL WITH ASSIST. DENIES PAIN.
--- NOTE | 2024-09-01 08:00 | NUR ---
ASSESSMENT DONE, SITTINIG UP IN CHAIR READY FOR BREAKFAST. PATIENT STATES SHE SLEPT WELL. CALM AT THIS TIME. TALKED WITH PATIENT ABOUT POC, INDICATES UNDERSTANDING. SON IS IN ROOM.
--- NOTE | 2024-09-01 08:30 | NUR ---
TOOK BREAKFAST FAIR. ROUTINE MEDICATIONS GIVEN. CONTINUES TO SIT IN CHAIR.
--- NOTE | 2024-09-01 09:30 | NUR ---
AMBULATED FROM ROOM 130 TO BACK EXIT DOOR AND THEN BACK TO ROOM 130. USED WALKER FOR AMBULATION. TOLERATED WELL. STATES SHE FEELS TIRED. DENIES SHORTNESS OF BREATH OR DIZZINESS. HR 104-140 WITH AMBULATION. MD AWARE. PATIENT NOW BACK TO BED.
--- NOTE | 2024-09-01 10:00 | NUR ---
PHYSICAL THERAPY HERE TO WORK WITH PATIENT. PATIENT IS VERY COOPERATIVE. USED BR TO VOID QS OF CLEAR YELLOW URINE. DENIES PAINFUL URINATION. AFTER PHYSICAL THERAPY WORK WITH PATIENT. AM CARES GIVEN. TOLERATED WELL.
--- NOTE | 2024-09-01 10:15 | NUR ---
RESTING IN BED.
[2024-09-01] MEDS ORDERED: APIXABAN 5 MG TAB PO SCH (10:39)
--- NOTE | 2024-09-01 11:41 | NUR ---
RN IN ROOM TO RESPOND TO CALL LIGHT - PT REQUESTS ASSISTANCE TO BATHROOM TO VOID. USING FWW PT AMBULATED STAND BY ASSIST, HR ELEVATED TO 120'S. MEDIUM BM NOTED, PT REQUIRES ASSISTANCE WIPING BUT ENCOURAGED SELF CARE. BACK TO BED WITH CALL LIGHT IN REACH, VISITOR AT BEDSIDE.
--- NOTE | 2024-09-01 12:00 | NUR ---
ASSESSMENT DONE. DENIES PAIN. HAS BEEN LESS EMOTIONAL TODAY. HR CONTINUES TO INCREASE WITH ACTIVITY. HEART RATE 120-140. WITH ACTIVITY. DENIES SHORTNESS OF BREATH OR DIZZINESS WITH MOVEMENT. UP TO CHAIR FOR LUNCH. PATIENT HAS BEEN USING WALKER FOR TRANSFERS.
[2024-09-01] MEDS ORDERED: APIXABAN 5 MG TAB ONE (12:56)
--- NOTE | 2024-09-01 15:41 | NUR ---
RESTING,NO DISTRESS NOTED. FAMILY IN ROOM.
--- NOTE | 2024-09-01 16:20 | NUR ---
ASESSMENT DONE. UP TO BR THEN TO CHAIR. DENIES PAIN OR NAUSEA. FAMILY MEMBERS ARE IN ROOM.
--- NOTE | 2024-09-01 17:55 | NUR ---
WITH ACTIVITY HR TO 140 FOR FEW SECONDS THEN TO 110 TO 120. DENIES DIZZINESS. AT REST HR 100-120.
--- NOTE | 2024-09-01 18:20 | NUR ---
IV 22 GA STARTED TO LFA. IV SITE TO RFA DC'D. TOLERATED POOR.
--- NOTE | 2024-09-01 18:30 | NUR ---
DR. WILSON UPDATED ON PATIENT HR. ORDERDS RECEIVED TO START CARDIZEM 120 PO X 1.
[2024-09-01] MEDS ORDERED: dilTIAZem HCL 120 MG CAPCR PO ONE (19:00)
--- NOTE | 2024-09-01 19:33 | NUR ---
REPORT TO NEXT SHIFT.
--- NOTE | 2024-09-01 20:15 | NUR ---
PATIENT ASSISTED TO THE BR A 1PA W/FWW. PATIENT ABLE TO VOID. PATIENT IS BACK IN BED RESTING. PATIENTS PM MEDS GIVEN PER ORDER. PATIENT EDUCATED ON NEW MEDICATIONS AND DOSAGES. ALL QUESTIONS ANSWERED AND PLAN OF CARE UPDATED. PATIENT DENIES ANY PAIN OR SOB. PATIENTS IV FLUSHED AND SL PER ORDER. PATIENT PROVIDED FRESH ICE WATER. PATIENT DENIES ANY FURTHER NEEDS. CALL LIGHT IN REACH.
--- NOTE | 2024-09-01 21:00 | NUR ---
PATIENT ASSISTED TO THE BR A 1PA W/FWW. PATIENT ABLE TO VOID. PATIENT IS BACK IN BED RESTING. PATIENT GIVEN PRN ANXIETY MEDICATION PER REQUEST. PATIENT DENIES ANY PAIN OR SOB. PATIENT DENIES ANY FURTHER NEEDS. CALL LIGHT IN REACH. SON AT BEDSIDE AND DENY ANY NEEDS.
[2024-09-01] MEDS ORDERED: LIDOCAINE HCL 4% 1 EACH PATCH TD SCH (21:30)
--- NOTE | 2024-09-01 21:48 | NUR ---
PATIENT ASSISTED TO AMBULATE IN ROOM. WAFFLE OVERLAY PLACED BACK IN BED PER PATIENT REQUEST. PATIENT GIVEN PRN SLEEP AID PER REQUEST. PATIENT RATES PAIN IN HER BACK 5/10, PRN MEDICATION GIVEN PER ODER. PATIENT IS BACK IN BED RESTING. PATIENT DENIES ANY FURTHER NEEDS. CALL LIGHT IN REACH.
--- NOTE | 2024-09-01 22:43 | NUR ---
PATIENT ASSISTED TO THE BR A 1PA W/FWW. PATIENT IS BACK IN BED RESTING ON HER RIGHT SIDE. PATIENT DENIES ANY FURHTER NEEDS. CALL LIGHT IN REACH.
--- NOTE | 2024-09-01 23:49 | NUR ---
PATIENT IS RESTING IN BED WITH EYES CLOSED, RR 13. CALL LIGHT IN REACH. NAD NOTED.
[2024-09-02] VITALS (7 sets, daily range): BP systolic 101–153; BP diastolic 62–85
--- NOTE | 2024-09-02 00:16 | NUR ---
PATIENT ASSISTED TO THE BR A 1PA W/FWW. PATIENT ABLE TO VOID. PATIENT IS BACK IN BED RESTING. PATIENT DENIES ANY PAIN OR SOB. PATIENT DENIES ANY FURTHER NEEDS. CALL LIGHT IN REACH.
--- NOTE | 2024-09-02 01:45 | NUR ---
PATIENT IS RESTING IN BED WITH EYES CLOSED, RR 16. NAD NOTED. CALL LIGHT IN REACH.
--- NOTE | 2024-09-02 03:17 | NUR ---
PATIENT ASSISTED TO THE BR A 1PA W/FWW. PATIENT IS BACK IN BED RESTING. PATIENTS VITALS TAKEN AND RECORDED. PATIENTS SCHEDULED MEDICATIONS GIVEN PER ORDER. PATIENT DENIES ANY PAIN OR SOB. PATIENT DENIES ANY FURTHER NEEDS. CALL LIGHT IN REACH. SON ASLEEP ON COUCH.
--- NOTE | 2024-09-02 04:45 | NUR ---
PATIENT ASSISTED TO STAND AT THE BEDSIDE AND STRETCH. PATIENT RATES PAIN IN HER BACK AT A 5/10 AND DENIES THE NEED FOR INTERVENTION AT THIS TIME. PATIENT IS BACK IN BED RESTING. PATIENT DENIES ANY FURTHER NEEDS. CALL LIGHT IN REACH. IV FLLUSHED AND SL PER ORDER.
[2024-09-02 05:31] LABS: BASOPHILS 2.1 % (0-2); EOSINOPHILS 2.6 % (0-6); HEMATOCRIT 37.1 % (35.0-50.0); HEMOGLOBIN 12.3 g/dL (12.0-18.0); LYMPHOCYTES 17.3 % (24-44); MCH 27.7 (27-36); MCHC 33.1 g/dl (30-36); MCV 83.7 fl (81-99); MONOCYTES 5.6 % (0-12); NEUTROPHILS 72.4 % (39-80); PLATELET COUNT 251 K/uL (140-440); RBC 4.43 M/ul (4.3-5.7); RDW 14.4 (10.5-15.0)
[2024-09-02 05:42] LABS: ANION GAP 14.3 (7-21); BUN/CREATININE RATIO 11.39 (6.0-28.6); CALCIUM 8.6 mg/dL (8.5-10.1); CREATININE, SERUM 0.79 mg/dL (0.55-1.02); POTASSIUM 3.3 mmol/L (3.5-5.1)
--- NOTE | 2024-09-02 06:28 | NUR ---
PATIENTS VITALS TAKEN AND RECORDED. PATIENT IS RESTING IN BED. PATIENT DENIES ANY NEEDS. CALL LIGHT IN REACH.
--- NOTE | 2024-09-02 07:32 | NUR ---
PATIENT ASSISTED TO THE BR A 1PA W/FWW. PATIENR ABLE TO HAVE BM AND VOID. PATIENT IS AMADEO IN BED RESTING. PATIENT DENIES ANY FURTHER NEEDS. CALL LIGHT IN REACH.
--- NOTE | 2024-09-02 08:42 | NUR ---
SBAR REPORT RECEIVED FROM SHANKAR BARNEY. ALL EVENTS OF THE PREVIOUS SHIFT WERE DISCUSSED AND PLAN OF CARE REVIEWED. PATIENT ELIZABETH ARANA IS NOTED TO BE RESTING IN BED WATCHING TELEVISION. HER SON CHACE REMAIN AT BEDSIDE. PLAN OF CARE REVIEWED WITH YASMEEN AND SHE IS ONBOARD WITH ALL CARES. MEDICATION EDUCATION PROVIDED. BREAKFAST PROVIDED. ROUNDS WITH MD GREENE COMPLETED. SEE EMAR FOR NEW ORDERS. TRANSFER TO MEDICAL SURGICAL FLOOR WILL BE ORDERED. AFIB WITH RVR 114-125 RA TEARFUL AT TIMES DUE TO HEALTH CONCERNS AND ANXIETY
[2024-09-02] MEDS ORDERED: dilTIAZem HCL 60 MG TAB PO SCH (09:00)
[2024-09-02] MEDS ORDERED: POTASSIUM CHLORIDE 10 MEQ TABCR PO ONE (09:00)
[2024-09-02] MEDS ORDERED: METOPROLOL TARTRATE 50 MG TAB PO SCH (09:00)
--- NOTE | 2024-09-02 10:32 | NUR ---
Upon entry to room Lilia is in bed and t.v. is on. Lilia is awake, and answers questions appropriately, she is oriented to person place and time. There is an adult family member asleep on the couch. Lilia shares that she lives at home with family members, and that upon discharge she plans to return home with her family members to current living situation. She denies concerns regarding returning to home and being able to meet her care needs.
--- NOTE | 2024-09-02 11:18 | NUR ---
YASMEEN AMBULATED TO THE RESTROOM WITH A FRONT WHEEL WALKER. 1 MEDIUM SIZED BM AND 200CC VOID OCCURRED. SHE IS NO BACK IN BED AND RESTING COMFORTBALY. YASMEEN REMOVED THE LIDOCAINE PATCH ON HER BACK STATING THAT SHE IS NOT IN PAIN AND DOES NOT NEED IT ANY LONGER
--- NOTE | 2024-09-02 12:26 | NUR ---
YASMEEN WAS UP TO CHAIR 3X THIS HOUR. SHE IS CURRENTLY SITTING AT EDGE OF BED ENJOYING HER MID DAY MEAL. SHE DENIES PAIN. AFIB CONTINUES HOWEVER THE RATE IS BETTER CONTROLLED AT 65-85HB.
--- NOTE | 2024-09-02 13:17 | NUR ---
YASMEEN WALKED AROUND THE UNIT WITH PT SHIRLEY. PERSONAL CANE USED WITH THIS RN FOLLOWING CLOSELY WITH A CHAIR FOR RESTING PERIODS. AFIB CONTINUES WITH HR REACHING 106 WITH ACTIVITY. PATIENT IS BACK IN ROOM IN BED. UPDATE GIVEN TO KATHY (SISTER) WITH YASMEEN'S PERMISSION. SHE HAS ANOTHER SISTER VISITING AT BEDSIDE. SON ALSO REMAINS AT BEDSIDE
--- NOTE | 2024-09-02 14:32 | NUR ---
2P ASSIST TO REPOSITION YASMEEN IN BED. LINENS CHANGED, TELEVISION TURNED ON, AMBIENT TEMPERATURE RAISED, AND H20 PROVIDED
--- NOTE | 2024-09-02 15:36 | NUR ---
ASSISTED YASMEEN TO THE RESTROOM. 1 UNMEASURED VOID. BACK TO BED AND REPOSITIONED FOR COMFORT. H20 PROVIDED. DENIES ANY OTHER NEEDS AT THIS TIME.
--- NOTE | 2024-09-02 16:57 | NUR ---
UP TO RESTROOM. 300CC CLEAR YELLOW URINE. BACK TO BED. YASMEEN DENIES PAIN AT THE MOMENT. SHE IS SOMEWHAT TEARFUL SHE HAS LEARNED FROM VISITORS THAT 7 FAMILY MEMBERS THIS WEEK. DISTRACTION AND THERPEUTIC CONVERSATIONS HAD.
--- NOTE | 2024-09-02 17:58 | NUR ---
PT ARRIVED TO FLOOR VIA WHEELCHAIR FROM CCU. FAMILY PRESENT AT BEDSIDE, DENIES ANY NEEDS AT THIS TIME. TELEMETRY PLACED ON PATIENT BY ANA M, CURRENTLY AFIB IN THE 80'S. PT IS SITTING ON EDGE OF BED AT THIS TIME, EATING DINNER. CALL LIGHT WITHIN REACH, ALL PT CARE NEEDS MET.
--- NOTE | 2024-09-02 19:15 | NUR ---
REPORT RECEIVED FROM WILMA CHAPARRO. pt RESTING IN THE BED. BOARD UPDATED. CALL LIGHT WITHIN REACH.
--- NOTE | 2024-09-02 20:38 | NUR ---
call light answered, pt up sba with personal fww and voided unmeasured void x1 and back in bed. vs and i&o's complete, call light in reach. pt denies additional needs or concerns. marii gutierrez updated.
--- NOTE | 2024-09-02 20:45 | NUR ---
ASSESSMENT AND VITAL SIGNS DONE. SCHEDULED MEDS ADMINISTERED. WATER REFRESHED. pt STATES HER RIGHT HAND IS TINGLY WHICH IS NOT NEW FROM THE ON SET OF THE STROKE. pt DENIES ANY OTHER NEEDS AT THIS TIME. CALL LIGHT WITHIN REACH.
[2024-09-02] MEDS ORDERED: LIDOCAINE PATCH REMOVAL 1 EA TD SCH (21:00)
--- NOTE | 2024-09-02 22:08 | NUR ---
CALL LIGHT ANSWERED. PT NEEDE TO USE BATHROOM. COMMERCIAL INTERIOR DESIGNER 1PA WITH FWW TO BATHROOM. PT VOIDED AND WASHED HANDS. COMMERCIAL INTERIOR DESIGNER ASSISTED PT BACK TO BED. OUTPUT MEASURED. PT STATES NO FUTHER NEEDS AT THIS TIME. CALL LIGHT WITHIN REACH.
--- NOTE | 2024-09-02 23:22 | NUR ---
CALL LIGHT ANSWERED. PT NEEDED TO USE BATHROOM. BLUEPRINT ASSEMBLER 1PA WITH FWW TO BATHROOM. PT VOIDED AND ASSISTED BACK TO BED. OUTPUT MEASURED. PT STATES NO FURTHER NEEDS AT THIS TIME. CALL LIGHT WITHIN REACH.
[2024-09-03] VITALS (12 sets, daily range): BP systolic 106–128; BP diastolic 47–76
--- NOTE | 2024-09-03 02:07 | NUR ---
CALL LIGHT ANSWERED. PT NEEDED TO UES BATHROOM. CAR RENTAL AGENCY MANAGER 1PA WITH FWW TO BATHROOM. PT VOIDED AND ASSISTED BACK TO BED. OUTPUT MEASURED. CAR RENTAL AGENCY MANAGER THEN OBTAINED AND DOCUMENTED VITALS AND I&O. PT STATES NO FURTHER NEEDS AT THIS TIME. CALL LIGHT WITHIN REACH.
--- NOTE | 2024-09-03 04:20 | NUR ---
pt RESTING IN THE BED WITH EYES CLOSED. RR EVEN AND UNLABORED. CALL LIGHT WITHIN REACH.
[2024-09-03 05:32] LABS: BASOPHILS 0.5 % (0-2); EOSINOPHILS 2.3 % (0-6); HEMATOCRIT 36.2 % (35.0-50.0); HEMOGLOBIN 11.9 g/dL (12.0-18.0); LYMPHOCYTES 19.5 % (24-44); MCH 27.4 (27-36); MCHC 32.9 g/dl (30-36); MCV 83.3 fl (81-99); MONOCYTES 7.2 % (0-12); NEUTROPHILS 70.5 % (39-80); PLATELET COUNT 268 K/uL (140-440); RBC 4.34 M/ul (4.3-5.7); RDW 14.1 (10.5-15.0)
[2024-09-03 05:42] LABS: ANION GAP 13.6 (7-21); BUN/CREATININE RATIO 9.89 (6.0-28.6); CALCIUM 8.6 mg/dL (8.5-10.1); CREATININE, SERUM 0.91 mg/dL (0.55-1.02); POTASSIUM 3.6 mmol/L (3.5-5.1)
--- NOTE | 2024-09-03 06:25 | NUR ---
pt RESTED THROUGH OUT THE NIGHT. NO NEW DEFICITS. RIGHT HAND HAS NUMBNESS AND TINGLING BUT NOT NEW FROM THE ONSET OF THE STROKE.
--- NOTE | 2024-09-03 08:06 | NUR ---
Patient's blood sugar check was 147. RN notified.
[2024-09-03] MEDS ORDERED: dilTIAZem HCL 180 MG CAPCR PO SCH (09:00)
--- NOTE | 2024-09-03 09:09 | NUR ---
PT STATES PATIENT WOULD BENEFIT FROM SHOWER CHAIR. PATIENT SITTING ON EDGE OF BED. DISCUSSED SHOWER CHAIR. INFORMATION FOR [facility] [employer] PROVIDED TO PATIENT. INFORMED HER INSURANCE DOES NOT COVER SHOWER CHAIRS AND LENDING CLOSET WILL GIVE HER THE SHOWER CHAIR FOR 3 MONTHS. VERBALIZES UNDERSTANDING. ALSO DISCUSSED DC PLAN. UNSURE IF SHE WILL HAVE A RIDE HOME DUE TO FAMILY BEING INVOLVED WITH [employer]. DISCUSSED CARERIDE WITH PATIENT OPTION FOR TRANSPORTATION TO HOME. INSTRUCTED TO NOTIFY STAFF OF NEED FOR TRANSPORTATION IF SHE IS UNABLE TO HAVE FAMILY GET HER. VERBALIZES UNDERSTANDING. PLANS TO DC TO HOME. ALSO VOICES SHE WOULD LIKE A SHOWER TODAY, FLOOR STAFF NOTIFIED.
--- NOTE | 2024-09-03 09:45 | NUR ---
GOT PT UP AND AMBULATING HALLWAY THIS MORNING PER MD, HR ELEVATED TO 140'S WITH EXERTION, PT STATES SHE DOES HAVE SOME SOB BUT SATS REMAINED STABLE. PER MD, CHANGED CARDIZEM TO LONG-ACTING 180MG BID. ALSO, VERIFIED WHEN GIVEN MED, SBP WAS 109, PER MD CHANGE PARAMETERS TO HOLD IF SBP>100. MEDICATIONS GIVEN, WILL ATTEMPT TO WALK PATIENT LATER TODAY TO SEE IF HR MORE CONTROLLED WITH LONG-ACTING DOSE. PT UPDATED OF CHANGE IN MEDS AND PROGRESS AND POTENTIAL TO DISCHARGE TOMORROW PENDING HOW NEW MEDICATION REGIMEN WORKS. PT VERBALIZED UNDERSTAND AND AGREES.
--- NOTE | 2024-09-03 10:37 | NUR ---
Patient walked the hallways while doctor monitored tele screen. They became winded after one lap and returned to their bed.
--- NOTE | 2024-09-03 11:35 | NUR ---
Blood sugar check was 152. RN notified
--- NOTE | 2024-09-03 11:55 | NUR ---
PT UP AMBULATING HALLWAY WITH PT CURRENTLY. HR IS ELEVATED, CURRENTLY 90-110'S AT THIS TIME, HIGHEST SHE RAN WAS 119. AMBULATING WITHOUT WALKER JUST WITH GAITBELT AND ASSISTANCE FROM PT.
[2024-09-03] MEDS ORDERED: IBLOOD GLUCOSE TEST STRIP 1 EA TEST XX PRN (12:00)
[2024-09-03] MEDS ORDERED: INSULIN LISPRO 100 UNIT/ML ML SUB-Q SCH (12:00)
[2024-09-03] MEDS ORDERED: DEXTROSE 50% 50 ML SYR IV PRN ×2 (12:00)
[2024-09-03] MEDS ORDERED: GLUCAGON,HUMAN RECOMBINANT 1 MG/ML VIAL SUB-Q PRN (12:00)
[2024-09-03] MEDS ORDERED: DEXTROSE 5% 1,000 ML IV PRN (12:00)
[2024-09-03] MEDS ORDERED: IBLOOD GLUCOSE TEST STRIP 1 EA TEST VI SCH (17:00)
--- NOTE | 2024-09-03 17:07 | NUR ---
PT RESTING IN BED, UP TO EDGE OF BED AT THIS TIME. TELEMETRY REMAINS IN PLACE AFIB IN THE 70-80'S AT THIS TIME. MEDS GIVEN - SEE MAR. WARM BLANKET PROVIDED TO PATIENT. INFORMED PT AFTER DINNER TO UP AND AMBULATE SO WE CAN MONITOR HER HR WITH EXERTION THIS EVENING AND AFTER 1ST DOSE OF CHANGED MEDICATION. PT VERBALIZED UNDERSTANDING. CALL LIGHT WITHIN REACH, ALL PT CARE NEEDS MET AT THIS TIME.
--- NOTE | 2024-09-03 18:05 | NUR ---
PT AMBULATING IN ALDRICH, HR 120-130'S AFIB. PT MINIMALLY SHORT OF BREATH. PT AMBULATING WITH CGA/FWW. RETURNED TO BED, HEART RATE RETURN TO AFIB 90'S.
--- NOTE | 2024-09-03 18:34 | NUR ---
Patient ambulated the hallway. SHANKAR Chun informed to monitor tele. Returned to bed once done.
--- NOTE | 2024-09-03 18:46 | NUR ---
PT CARED FOR 1744- [id number]: AMBULATED IN ALDRICH, PLEASANT AND COOPERATIVE WITH CARE. PT DENIES C/O AT THIS TIME. RESTING IN BED SIDERAILS UP X 2, CALL MEDINA IN REACH, BED IN LOW POSITION AND LOCKED.
--- NOTE | 2024-09-03 19:15 | NUR ---
REPORT RECEIVED FROM MERYL CHAPARRO. pt RESTING IN THE BED WITH EYES CLOSED. RR EVEN AND UNLABORED. CALL LIGHT WITHIN REACH.
--- NOTE | 2024-09-03 19:41 | NUR ---
CALL LIGHT ANSWERED. PT NEEDED TO USE BATHROOM. WEB APPLICATIONS PROGRAMMER 1PA TO BATHROOM. PT VOIDED AND ASSISTED BACK TO BED. OUTPUT MEASURED. PT GIVEN WARM BLANKET UPON REQUEST. PT STATES NO FURTHER NEEDS AT THIS TIME. CALL LIGHT WITHIN REACH.
--- NOTE | 2024-09-03 21:11 | NUR ---
HOTEL LOBBY CONCIERGE CHECKED PT BLOOD SUGAR. BLOOD SUGAR IS 160. FLOWER CHAPARRO NOTIFED. HOTEL LOBBY CONCIERGE THEN OBTAINED AND DOCUMENTED VITALS AND I&O. PT STATED THAT SHE NEEDED TO USE BATHROOM. HOTEL LOBBY CONCIERGE 1PA WITH FWW TO BATHROOM. PT VOIDED AND ASSISTED BACK TO BED. OUTPUT MEASURED. PT STATES NO FURTHER NEEDS AT THIS TIME. CALL LIGHT WITHIN REACH.
--- NOTE | 2024-09-03 21:20 | NUR ---
ASSESSMENT AND VITAL SIGNS DONE. pt SAT ON THE SIDE OF THE BED TO TAKE HER SCHEDULED MEDS. NO NEW DEFICITS AT THIS TIME. pt BLOOD CUGAR CHECKED WITH A RESULTS OF 160. SS INSULIN ADMINISTERED. pt DENIES ANY OTHER NEEDS AT THIS TIME. CALL LIGHT WITHIN REACH.
--- NOTE | 2024-09-03 22:29 | NUR ---
CALL LIGHT ANSWERED. PT NEEDED TO USE BATHROOM. ELEMENTARY VOCAL MUSIC TEACHER 1PA WITH FWW TO BATHROOM. PT VOIDED AND ASSISTED BACK TO BED. OUTPUT MEASURED. ELEMENTARY VOCAL MUSIC TEACHER BROUGHT PT CHEESE STICK UPON REQUEST. PT WANTED TO SIT AT EDGE OF BED TO EAT SNACKS. PT INSTRUCTED TO CALL WHEN READY TO LAY DOWN. CALL LIGHT WITHIN REACH.
[2024-09-04] VITALS (7 sets, daily range): BP systolic 111–140; BP diastolic 56–96
--- NOTE | 2024-09-04 01:00 | NUR ---
pt RESTING IN THE BED WITH EYES CLOSED. RR EVEN AND UNLABORED. CALL LIGHT WITHIN REACH.
--- NOTE | 2024-09-04 01:54 | NUR ---
HEALTH PROMOTION OFFICER OBTAINED VITALS AND I&O. PT STATES NO NEEDS AT THIS TIME. CALL LIGHT WITHIN REACH.
--- NOTE | 2024-09-04 03:36 | NUR ---
CALL LIGHT ANSWERED. PT STATED THAT SHE NEEDED TO USE BATHROOM. FIREPOT OPERATOR AND TENDER 1PA WITH FWW TO BATHROOM. PT VOIDED AND ASSISTED BACK TO BED. OUTPUT MEASURED. PT STATES NO FURTHER NEEDS AT THIS TIME. CALL LIGHT WITHIN REACH.
--- NOTE | 2024-09-04 04:00 | NUR ---
pt RESTING IN THE BED WITH EYES CLOSED. RR EVEN AND UNLABORED. CALL LIGHT WITHIN REACH.
--- NOTE | 2024-09-04 05:32 | NUR ---
HEALTH/SAFETY JOB TITLES OBTAINED VITALS AND I&O. PT STATES NO NEEDS AT THIS TIME. CALL LIGHT WITHIN REACH.
[2024-09-04 05:34] LABS: BASOPHILS 0.6 % (0-2); EOSINOPHILS 2.6 % (0-6); HEMATOCRIT 38.4 % (35.0-50.0); HEMOGLOBIN 12.3 g/dL (12.0-18.0); LYMPHOCYTES 19.6 % (24-44); MCH 27.1 (27-36); MCHC 32.1 g/dl (30-36); MCV 84.5 fl (81-99); MONOCYTES 6.8 % (0-12); NEUTROPHILS 70.4 % (39-80); PLATELET COUNT 274 K/uL (140-440); RBC 4.54 M/ul (4.3-5.7); RDW 14.4 (10.5-15.0)
[2024-09-04 05:47] LABS: ANION GAP 13.8 (7-21); BUN/CREATININE RATIO 11.95 (6.0-28.6); CALCIUM 8.9 mg/dL (8.5-10.1); CREATININE, SERUM 0.92 mg/dL (0.55-1.02); MAGNESIUM 2.1 mg/dL (1.8-2.4); POTASSIUM 3.8 mmol/L (3.5-5.1)
--- NOTE | 2024-09-04 07:10 | NUR ---
REPORT REC'D FROM [facility]. PT SITTING ON SIDE OF BED WAITING FOR BREAKFAST.
--- NOTE | 2024-09-04 08:34 | NUR ---
Board has beeen updated and blood sugar has been checked. Assisted patient to the bathroom with walker.
[2024-09-04] MEDS ORDERED: ELIQUIS5 MG PO (09:44)
[2024-09-04] MEDS ORDERED: LIPITOR40 MG PO (09:45)
[2024-09-04] MEDS ORDERED: DILTIAZEM 24HR180 M1 PO (09:45)
[2024-09-04] MEDS ORDERED: METFORMIN HCL500 MG PO (09:51)
--- NOTE | 2024-09-04 09:59 | NUR ---
Patient walked a lap around the nurse station, patient reported liking the assisted device used to walk (walker). No report of pain or discomfort. Patient is back in bed, call light has been placed within reach
--- NOTE | 2024-09-04 10:53 | NUR ---
DC ORDERS NOTED. 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 PT RESTING IN BED AT THIS TIME. NO C/O VERBALIZED.
--- NOTE | 2024-09-04 11:27 | NUR ---
ASSISTED PT TO RESTROOM. ASSISTED PT BACK TO BED. PROVIDED FRESH CUP OF ICE WATER PER PT REQUEST. PT IS SITTING UP IN BED WATCHING TV. PERSONAL BELONGINGS AND CALL LIGHT ARE WITHIN REACH. PT STATED NO FURTHER NEEDS AT THIS TIME.
== END 2024-09-04 14:00 | disposition home or self-care (01) | DRG 65 ==
LOC: ED 03:52 → CCU 06:55 → MS 09-02 17:35
PROVIDERS: Internal Medicine; ADMIT Student in an Organized Health Care Education/Training Program; ATTEND Student in an Organized Health Care Education/Training Program
DX: I63.532 Cerebral infarction due to unspecified occlusion or stenosis of left posterior cerebral artery (principal); G81.91 Hemiplegia, unspecified affecting right dominant side; I48.91 Unspecified atrial fibrillation; I10 Essential (primary) hypertension; E78.5 Hyperlipidemia, unspecified; F41.9 Anxiety disorder, unspecified; R29.700 NIHSS score 0; E11.9 Type 2 diabetes mellitus without complications; R26.81 Unsteadiness on feet; E66.01 Morbid (severe) obesity due to excess calories; I27.20 Pulmonary hypertension, unspecified; F40.240 Claustrophobia; M81.0 Age-related osteoporosis without current pathological fracture; Z79.899 Other long term (current) drug therapy; Z91.040 Latex allergy status; Z79.82 Long term (current) use of aspirin
CPT/HCPCS: 36415; 51701; 70450; 70496; 70498; 71045; 80048; 80053; 80061; 80307; 81003; 83036; 83605; 83735; 83880; 84484; 85025; 85610; 85730; 87040; 93005; 93010; 93306; 97110; 97116; 97162; 97165; 97530; 97535; 99285-25; A9270; G0480; J1815; J2060; J7121; Q0177

== ENCOUNTER 2025-03-19 10:22 | Emergency (ER) | payer MEDICARE, OTHER ==
[~2025-03-19] VITALS: Ht 162.6 cm; Wt 102.8 kg
[~2025-03-19 10:22] MED LIST changes: +DILTIAZEM 24HR180 M1 PO; +ELIQUIS5 MG PO; +FOSAMAX70 MG PO; +GABAPENTIN100 MG PO; +LIPITOR40 MG PO; +METFORMIN HCL500 MG PO; +VENTOLIN HFA18 GM INH
[2025-03-19] MEDS ORDERED: ALBUTEROL/IPRATROPIUM 3 ML NEB INH PRN (10:45)
[2025-03-19 11:41] LABS: BASOPHILS 0.5 % (0.1-1.2); EOSINOPHILS 1.1 % (0.7-5.8); LYMPHOCYTES 16.9 % (19.3-51.7); MCH 27.4 PG (25.6-32.2); MCHC 31.6 g/dL (32.2-35.5); MCV 86.6 fL (79.4-94.8); MONOCYTES 5.3 % (4.7-12.5); NEUTROPHILS 75.7 % (34.0-71.1); RBC 4.02 M/uL (3.93-5.22)
[2025-03-19 12:04] LABS: ALT (SGPT) 28.0 U/L (14-59); AST (SGOT) 17.0 U/L (15-37); GLOMERULAR FILTRATION RATE,EST 59.0 mL/min (>60); PROTEIN, TOTAL 7.2 g/dL (6.4-8.2); UREA NITROGEN 15.0 mg/dL (7-18)
[2025-03-19] MEDS ORDERED: LASIX20 MG PO (12:54)
[2025-03-19] MEDS ORDERED: POTASSIUM CHLO10 MEQ PO (12:54)
[2025-03-19] MEDS ORDERED: FUROSEMIDE 40 MG/4 ML VIAL IV ONE (13:00)
[2025-03-19 14:09] VITALS: BP 127/112
--- NOTE | 2025-03-20 17:50 | EKG ---
[facility] [address] [facility] [place] [address] Signed Atrial fibrillation Low voltage QRS Abnormal ECG When compared with ECG of 30-AUG-2024 04:29, Vent. rate has decreased BY 44 BPM Confirmed by Yandy Schulz DO ([id number]) on 03/20/2025 5:49:56 PM Electronically Signed By: YANDY SCHULZ DO 03/20/25 1750 PATIENT NAME: RANDY JOHNSON Electrocardiogram DATE OF : 53 PHYSICIAN: YANDY SCHULZ DO REPORT #: [id number] REPORT IS CONFIDENTIAL AND NOT TO BE RELEASED WITHOUT AUTHORIZATION
== END 2025-03-19 14:12 | disposition home or self-care (01) ==
LOC: ED 10:22
PROVIDERS: Emergency Medicine
DX: R06.02 Shortness of breath (principal); I48.91 Unspecified atrial fibrillation; E11.9 Type 2 diabetes mellitus without complications; I10 Essential (primary) hypertension; Z86.73 Personal history of transient ischemic attack (TIA), and cerebral infarction without residual deficits; Z87.891 Personal history of nicotine dependence; Z91.040 Latex allergy status; Z79.01 Long term (current) use of anticoagulants; Z79.84 Long term (current) use of oral hypoglycemic drugs; Z79.83 Long term (current) use of bisphosphonates; Z79.1 Long term (current) use of non-steroidal anti-inflammatories (NSAID); Z79.899 Other long term (current) drug therapy
CPT/HCPCS: 36415; 71045; 80053; 83735; 83880; 84484; 85025; 93005; 93010; 94640; 96374; 99285-25; J1938

== ENCOUNTER 2025-04-30 23:46 | Emergency (ER) | payer MEDICARE, OTHER ==
[~2025-04-30] VITALS: Ht 162.6 cm; Wt 103.0 kg
[~2025-04-30 23:46] MED LIST changes: +ALBUTEROL/IPRATROPIUM 3 ML NEB INH PRN; +LASIX20 MG PO; +POTASSIUM CHLO10 MEQ PO
[2025-05-01 00:08] LABS: BASOPHILS 0.6 % (0.1-1.2); EOSINOPHILS 1.7 % (0.7-5.8); LYMPHOCYTES 19.5 % (19.3-51.7); MCH 26.7 PG (25.6-32.2); MCHC 31.6 g/dL (32.2-35.5); MCV 84.5 fL (79.4-94.8); MONOCYTES 5.8 % (4.7-12.5); NEUTROPHILS 71.9 % (34.0-71.1); RBC 4.01 M/uL (3.93-5.22)
[2025-05-01 00:29] LABS: ALT (SGPT) 23.0 U/L (14-59); AST (SGOT) 16.0 U/L (15-37); GLOMERULAR FILTRATION RATE,EST 57.0 mL/min (>60); PROTEIN, TOTAL 7.2 g/dL (6.4-8.2); UREA NITROGEN 15.0 mg/dL (7-18)
[2025-05-01] MEDS ORDERED: FUROSEMIDE 20 MG/2 ML VIAL IV ONE (01:00)
[2025-05-01] MEDS ORDERED: LASIX20 MG PO (01:05)
[2025-05-01 01:47] VITALS: BP 128/76
--- NOTE | 2025-05-02 13:56 | EKG ---
[facility] [address] [facility] [place] [address] Signed Atrial fibrillation with rapid ventricular response Low voltage QRS Abnormal ECG When compared with ECG of 19-MAR-2025 10:57, No significant change was found Confirmed by Sp Dee MD () on 05/02/2025 1:56:48 PM Electronically Signed By: SP DEE MD 05/02/25 1356 PATIENT NAME: RANDY JOHNSON Electrocardiogram DATE OF : 53 PHYSICIAN: SP DEE MD REPORT #: [id number] REPORT IS CONFIDENTIAL AND NOT TO BE RELEASED WITHOUT AUTHORIZATION
== END 2025-05-01 01:52 | disposition home or self-care (01) ==
LOC: ED 23:46
PROVIDERS: Emergency Medicine
DX: I11.0 Hypertensive heart disease with heart failure (principal); I50.9 Heart failure, unspecified; S40.022A Contusion of left upper arm, initial encounter; S70.12XA Contusion of left thigh, initial encounter; W06.XXXA Fall from bed, initial encounter; E78.5 Hyperlipidemia, unspecified; D72.829 Elevated white blood cell count, unspecified; Z91.040 Latex allergy status; Z79.899 Other long term (current) drug therapy
CPT/HCPCS: 36415; 71045; 80053; 83735; 83880; 84484; 85025; 93005; 93010; 96374; 99285-25; J1938

== ENCOUNTER 2025-06-28 22:33 | Emergency (ER) | payer MEDICARE, OTHER ==
[~2025-06-28] VITALS: Ht 162.6 cm; Wt 103.0 kg
[~2025-06-28 22:33] MED LIST changes: -ALBUTEROL/IPRATROPIUM 3 ML NEB INH PRN
[2025-06-28] MEDS ORDERED: MORPHINE SULFATE 4 MG/ML VIAL IV ONE (23:45)
[2025-06-29 00:25] LABS: BASOPHILS 1.0 % (0.1-1.2); EOSINOPHILS 0.7 % (0.7-5.8); LYMPHOCYTES 24.7 % (19.3-51.7); MCH 24.7 PG (25.6-32.2); MCHC 30.2 g/dL (32.2-35.5); MCV 81.8 fL (79.4-94.8); MONOCYTES 12.1 % (4.7-12.5); NEUTROPHILS 61.2 % (34.0-71.1); RBC 5.10 M/uL (3.93-5.22)
[2025-06-29 00:41] LABS: ALT (SGPT) 48.0 U/L (14-59); AST (SGOT) 37.0 U/L (15-37); GLOMERULAR FILTRATION RATE,EST 42.0 mL/min (>60); PROTEIN, TOTAL 7.0 g/dL (6.4-8.2); UREA NITROGEN 21.0 mg/dL (7-18)
[2025-06-29] MEDS ORDERED: KETOROLAC TROMETHAMINE 15 MG/ML VIAL IV ONE (01:00)
[2025-06-29] MEDS ORDERED: TRAMADOL HCL50 MG PO (01:07)
[2025-06-29] MEDS ORDERED: TRAMADOL HCL 50 MG HOME.PACK PO ONE (01:15)
[2025-06-29 01:35] VITALS: BP 109/85
== END 2025-06-29 01:35 | disposition home or self-care (01) ==
LOC: ED 22:33
PROVIDERS: Family Medicine
DX: M16.11 Unilateral primary osteoarthritis, right hip (principal); Z91.040 Latex allergy status; Z79.899 Other long term (current) drug therapy
CPT/HCPCS: 36415; 73502; 80053; 85025; 96374; 99283-25; A9270; J1885